=== PATIENT | female | born 1995 | race Caucasian/White ===

== ENCOUNTER 2019-09-01 16:50 | Emergency (ER) | payer SELFPAY ==
[~2019-09-01] VITALS: Ht 172.7 cm; Wt 59.0 kg
[~2019-09-01 16:50] MED LIST: ALPR0.25 PO
[2019-09-01 17:01] VITALS: BP 124/84
--- NOTE | 2019-09-01 17:56 | NUR ---
LATE NOTE: PT COMPLIANT WITH VITALS, EKG COMPLETE, CONNECTED TO MONITORING. PT A&O4, ANSWERING QUESTIONS APPROPRIATELY. MD AT BEDSIDE FOR ASSESSMENT AND POC. PT STATES SHE DOES NOT WANT LABS DRAWN OR ANY WORKUP. PT STATES SHE WOULD FEEL MORE COMFORTABLE IF SHE COULD COME BACK LATER WITH HER FATHER. PT SIGNED AMA PAPERWORK. PT AWARE SHE CAN COME BACK TO ER AT ANYTIME FOR WORKUP. PT AMBULATED TO EXIT WITH STEADY GAIT.
== END 2019-09-01 17:19 | disposition left against medical advice (07) ==
LOC: ED 17:16
DX: R55 Syncope and collapse (principal); R56.9 Unspecified convulsions; R00.0 Tachycardia, unspecified
CPT/HCPCS: 93005; 99283